=== PATIENT | female | born 1995 | race Caucasian/White ===

== ENCOUNTER → 2020-06-28 | Outpatient (REF) | payer OTHER ==
[~2020-06-28] MED LIST: ACET-683 PO; IBUP80TA PO
== END ==
LOC: M SFHCWAGY 12:40
PROVIDERS: ATTEND Advanced Practice Midwife
DX: Z36.89 Encounter for other specified antenatal screening (principal); Z3A.36 36 weeks gestation of pregnancy
CPT/HCPCS: 87081; G0463

== ENCOUNTER 2020-07-16 20:42 | Inpatient (IN) | payer OTHER ==
[2020-07-16] VITALS (7 sets, daily range): BP systolic 129–148; BP diastolic 72–95
[~2020-07-16] VITALS: Ht 170.2 cm; Wt 110.3 kg
[2020-07-16 21:38] LABS: HEMATOCRIT 34.5 % (36.0-47.0); HEMOGLOBIN 11.9 g/dl (12.0-15.5); MEAN CORPUSCULAR HEMOGLOBIN 30.9 pg (27.0-33.0); MEAN CORPUSCULAR HGB CONC 34.5 g/dl (32.0-36.5); MEAN CORPUSCULAR VOLUME 89.6 fl (80.0-96.0); PLATELET COUNT, AUTOMATED 261 10^3/uL (150-450); RED BLOOD COUNT 3.85 10^6/uL (4.00-5.40); WHITE BLOOD COUNT 8.6 10^3/uL (4.0-10.0)
[2020-07-16] MEDS ORDERED: LIDOCAINE 1% MDV 20ML VIAL INFIL PRN (21:50)
[2020-07-16] MEDS ORDERED: TRANEXAMIC ACID INJection 1,000 MG in NS 100 ML IV PRN (21:50)
[2020-07-16] MEDS ORDERED: CARBOPROST TROMETHAMINE 250 MCG/ML AMP IM PRN (21:50)
[2020-07-16] MEDS ORDERED: OXYTOCIN DRIP 30 UNITS in IV 1 EA IV SCH (21:50)
[2020-07-16] MEDS ORDERED: OXYTOCIN INJ 10 UNITS/ML VIAL (J2590) IM PRN (21:50)
[2020-07-16] MEDS ORDERED: OXYTOCIN DRIP 30 UNITS in IV 1 EA IV PRN ×6 (21:50)
[2020-07-16] MEDS ORDERED: LR 1,000 ML IV SCH (21:50)
[2020-07-16] MEDS ORDERED: OXYTOCIN INJ 10 UNITS/ML VIAL (J2590) IV PRN (21:50)
[2020-07-16] MEDS ORDERED: METHYLERGONOVINE MALEATE 0.2 MG/ML VIAL (J2210) IM PRN (21:50)
[2020-07-16] MEDS ORDERED: LACTATED RINGER'S 1000 ML IV STA (21:50)
--- NOTE | 2020-07-16 22:03 | HPEPDOC ---
Obstetrical History & Physical General Date of Admission July 16, 2020 at 20:42 History of Present Illness 25-year-old at 39+0 weeks gestation. Presents for an induction of labor. Indication for induction: Elective She denies vaginal bleeding, loss of fluid or painful, frequent uterine contractions. She reports regular movement. She denies headache, visual changes, right upper quadrant pain, shortness of breath or chest pain. course: Uncomplicated PMH: None SH:. Ankle/foot, no abdominal surgeries Meds: vitamin All: NKDA ENDOSCOPY NURSE: No STI or dysplasia OB: 2016, , 6 lbs. 10 oz. at 36 weeks/PPROM Sochx: No tobacco, alcohol or drug use FamHx: Breast cancer, hypertension, diabetes, asthma labs: Blood type A negative, antibody screen negative, HepBsAg neg, HIV neg, rubella immune, Hep C antibody negative, RPR nonreactive, CT/GC neg, urine culture negative, GDM screen negative, GBS negative Imaging: No placental abnormalities or anomalies Past Medical History Allergies Coded Allergies: azithromycin (Verified Allergy, Mild, RASH, 07/16/20) ceftriaxone (Verified Allergy, Mild, NAUSEA/VOMITING, 07/16/20) Sulfa (Sulfonamide Antibiotics) (Verified Allergy, Unknown, NAUSEA/VOMITING, 07/16/20) Physical Examination Physical Examination GENERAL: Alert and oriented times three. ABDOMEN: Gravid and non-tender to touch. FETUS: Is vertex (VTX) by sterile vaginal examination (SVE), fetus is vertex (VTX) by Akbar. HEART RATE: Regular rate and rhythm. LUNGS: Clear to auscultation (CTA). EXTREMITIES: No edema. No clonus. SVE: 3-4 cm, 75%, -2 station, cephalic, intact, no bloody show EFM: Category 1 [place]: Irregular rare contraction pattern Vital Signs/I&O Vital Signs Date Time Temp Pulse Resp B/P (MAP) Pulse Ox O2 Delivery O2 Flow Rate FiO2 07/16/20 21:08 97.6 103 148/95 (112) Laboratory Data 24H LABS Laboratory Tests 2 07/16/20 21:30: Nucleated Red Blood Cells % (auto) 0.0 CBC/BMP Laboratory Tests 07/16/20 21:30 Assessment/Plan Assessment 25-year-old G2, P0 101 at 39+0 weeks gestation. Reassuring maternal and status. Elective induction of labor Plan Admit and orient. Medical Case Worker and consent. Labs and intravenous (IV) per unit protocol. Counseled on Pitocin and induction of labor (IOL). Anticipate C-S as appropriate. PRINCE VIDAL DO July 16, 2020 22:03
[2020-07-17] VITALS (36 sets, daily range): BP systolic 113–180; BP diastolic 58–105
[2020-07-17 00:03] LABS: TOTAL PROTEIN,RANDOM URINE 13.4 MG/DL (0.0-12.0)
[2020-07-17] MEDS ORDERED: FENTANYL 2MCG/ML ROPIVACAINE 0.2% IN 0.9% NACL 100ML IVBAG As Ordered ONE (01:15)
[2020-07-17] MEDS ORDERED: EPIDURAL/PCA KEYS XX PRN (01:50)
[2020-07-17] MEDS ORDERED: ONDANSETRON 4MG/2ML VIAL IV PRN ×2 (01:50→05:50)
[2020-07-17] MEDS ORDERED: EPIDURAL COMMENT XX SCH (01:50)
[2020-07-17] MEDS ORDERED: FENTANYL/ROPIVACAINE/NACL BAG 100 ML EPIDURAL SCH (01:50)
[2020-07-17] MEDS ORDERED: NALOXONE INJ 0.4MG/1ML VIAL (J2310 PER 1MG) IV PRN (01:50)
[2020-07-17] MEDS ORDERED: ePHEDrine SULFATE 25 MG/5 ML(5MG/ML) SYRINGE IV PRN (01:50)
[2020-07-17] MEDS ORDERED: diphenhydrAMINE 50MG/ML VIAL (J1200) IV PRN (01:50)
[2020-07-17] MEDS ORDERED: LACTATED RINGER'S 1000 ML IV PRN (01:50)
[2020-07-17] MEDS ORDERED: REFRIGERATOR IV KEYS XX PRN (01:50)
--- NOTE | 2020-07-17 02:56 | IPNPDOC ---
Obstetrical Progress Note Date of Service July 17, 2020 Subjective Patient is comfortable with epidural. Pt has had bloody show but no LOF. Objective Vital Signs Date Time Temp Pulse Resp B/P (MAP) Pulse Ox O2 Delivery O2 Flow Rate FiO2 07/16/20 22:11 110 138/91 (107) 07/16/20 21:08 97.6 Assessment Heart Rate Tracing: Category I Tocometer Contractions: Yes Frequency: every 2-5 min. Sterile Vaginal Examination Dilation: 5 cm Effacement (%): 90% Station: -1 Cervical Consistency: Soft Cervical Position: Anterior (AROM, clear fluid) Postion/Presentation: Cephalic presentation Assessment and Plan Status: Reassuring Anticipate: Vaginal Delivery Additional Comments Reassuring maternal and status. Continue Pitocin. PRINCE VIDAL DO July 17, 2020 02:56
[2020-07-17] MEDS ORDERED: MEASLES,MUMPS,RUBELLA VACCINE INJ (MMR-II) (90707) SC SCH (05:50)
[2020-07-17] MEDS ORDERED: DOCUSATE SODIUM 100MG CAPSULE PO PRN (05:50)
[2020-07-17] MEDS ORDERED: IBUPROFEN 600MG TAB PO PRN (05:50)
[2020-07-17] MEDS ORDERED: OXYTOCIN DRIP 30 UNITS in IV 1 EA IV SCH ×2 (05:50→06:05)
[2020-07-17] MEDS ORDERED: DIBUCAINE 1% OINTMENT 30GM TOP PRN (05:50)
[2020-07-17] MEDS ORDERED: RHOGAM 300 MCG (1500 IU) INJ (J2790) IM SCH (05:50)
[2020-07-17] MEDS ORDERED: ACETAMINOPHEN TAB 650MG DOSE (2X325MG) PO PRN (05:50)
[2020-07-17] MEDS ORDERED: ACETAMINOPHEN 500 MG TAB PO PRN (05:50)
[2020-07-17] MEDS ORDERED: LR 1,000 ML IV SCH (05:50)
[2020-07-17] MEDS ORDERED: OXYTOCIN 30 UNITS IN 0.9% NaCl 500ML IV BAG (J2590) As Ordered ONE (05:53)
--- NOTE | 2020-07-17 05:54 | DNPDOC ---
[facility] Delivery Note Delivery Note DATE OF DELIVERY: 07/17/20 TIME OF DELIVERY: 05 Spontaneous vaginal delivery. ELECTRONIC MAINTENANCE SUPERVISOR: Dr. Pineda Javier DO FACOG ANESTHESIA: Epidural LACERATION: none ESTIMATED BLOOD LOSS: 400 mL. FINDINGS: 7 pound 4 ounce (3280g) Female infant, Score 8 and 9. DELIVERY SUMMARY: The active phase and second stage of labor progressed in normal fashion. She received Pitocin augmentation throughout her labor course. The head delivered in the CHACE position, and restituted LOT. No nuchal cord was noted. The anterior shoulder delivered with gentle downward guidance and the remainder of the body delivered with ease. The baby was placed on the patient's chest. Delayed cord clamping occurred for approximately 1 minute. The cord was then doubly clamped and cut. IV Pitocin was bolused to actively manage the thi rd stage of labor. The placenta delivered intact without any difficulty within 10 minutes of delivery. Uterine bleeding was noted to be heavy and uterotonics were administered: IV Pitocin, Hemabate 0.25mg IM x1, Cytotec 1000mcg VT. The uterine fundus was noted to be firm and 2 cm below the umbilicus. The cervix, vagina, vulva and perineum were inspected. Bleeding was improved. No lacerations. Excellent hemostasis was noted. Sponge, needle and instrument counts were correct per protocol. DO SINTIA Montelongo JONATHAN R. DO July 17, 2020 05:54
[2020-07-17] MEDS ORDERED: LOPERAMIDE 2 MG CAPLET PO ONE (06:10)
[2020-07-17] MEDS: PRENATAL VITAMINS CHEWABLE TABLET PO SCH (08:57)
[2020-07-17] MEDS: IBUPROFEN 800 MG TAB PO PRN ×2 (11:37→22:44)
[2020-07-18 06:00] VITALS: BP 118/75
[2020-07-18] MEDS: PRENATAL VITAMINS CHEWABLE TABLET PO SCH (08:01)
[2020-07-18] MEDS ORDERED: ACET-683 PO (10:10)
[2020-07-18] MEDS ORDERED: IBUP80TA PO (10:10)
== END 2020-07-18 11:15 | disposition home or self-care (01) | DRG 807 ==
LOC: M LDI 20:42 → M OBS 07-17 09:30
PROVIDERS: ADMIT Obstetrics & Gynecology; ATTEND Obstetrics & Gynecology
PROC: 3E033VJ Introduction of Other Hormone into Peripheral Vein, Percutaneous Approach (ICD-10-PCS; 2020-07-16)
PROC: 10E0XZZ Delivery of Products of Conception, External Approach (ICD-10-PCS; principal; 2020-07-17)
PROC: 10907ZC Drainage of Amniotic Fluid, Therapeutic from Products of Conception, Via Natural or Artificial Opening (ICD-10-PCS; 2020-07-17)
DX: O80 Encounter for full-term uncomplicated delivery (principal); Z37.0 Single live birth; Z3A.39 39 weeks gestation of pregnancy

== ENCOUNTER → 2020-11-07 | Outpatient (CLI) | payer OTHER ==
[2020-11-07 11:16] LABS: HCG, SERUM QUALITATIVE NEGATIVE (NEGATIVE)
== END ==
LOC: M PLALAB 08:55
PROVIDERS: ATTEND Advanced Practice Midwife
DX: N92.6 Irregular menstruation, unspecified (principal)

== ENCOUNTER → 2021-08-13 | Outpatient (REF) | payer OTHER ==
[2021-08-13 17:36] LABS: C REACTIVE PROTEIN QUANTITATIV 0.43 MG/DL (0.00-0.30); RHEUMATOID FACTOR QUANT < 10.0 IU/ML (<15.0)
== END ==
LOC: M LAB REF 16:42
PROVIDERS: ATTEND Nurse Practitioner Family
DX: Z83.2 Family history of diseases of the blood and blood-forming organs and certain disorders involving the immune mechanism (principal)

== ENCOUNTER → 2021-08-14 | Outpatient (CLI) | payer OTHER | LOC: M RAD 16:38 | PROVIDERS: ATTEND Nurse Practitioner Family | DX: M79.641 Pain in right hand (principal) ==

== ENCOUNTER → 2022-03-20 | Outpatient (CLI) | payer OTHER ==
[2022-03-20 10:15] LABS: BASO % 0.5 % (0.0-1.0); EOS # 0.2 10^3/uL (0.0-0.5); EOS % 2.6 % (0.0-3.0); HEMATOCRIT 39.4 % (36.0-47.0); HEMOGLOBIN 13.2 g/dl (12.0-15.5); LYMPH # 1.6 10^3/uL (1.5-5.0); LYMPH % 25.3 % (24.0-44.0); MEAN CORPUSCULAR HGB CONC 33.5 g/dl (32.0-36.5); MEAN CORPUSCULAR VOLUME 92.5 fl (80.0-96.0); MONO # 0.5 10^3/uL (0.0-0.8); MONO % 8.4 % (2.0-8.0); NEUTROPHILS # 3.9 10^3/uL (1.5-8.5); PLATELET COUNT, AUTOMATED 289 10^3/uL (150-450); RED BLOOD COUNT 4.26 10^6/uL (4.00-5.40); WHITE BLOOD COUNT 6.2 10^3/uL (4.0-10.0)
[2022-03-20 10:34] LABS: ALBUMIN 3.9 G/DL (3.2-5.2); ALKALINE PHOSPHATASE 91 U/L (46-116); ALT/SGPT 20 U/L (7.0-40); AST/SGOT 18 U/L (<34); BILIRUBIN,TOTAL 0.7 MG/DL (0.3-1.2); BLOOD UREA NITROGEN 10 MG/DL (9-23); CALCIUM LEVEL 9.2 MG/DL (8.5-10.1); CARBON DIOXIDE LEVEL 27 MMOL/L (20-31); CHLORIDE LEVEL 105 MMOL/L (98-107); CREATININE FOR GFR 0.62 MG/DL (0.55-1.30); GLOMERULAR FILTRATION RATE > 60.0 (>60); GLUCOSE, FASTING 83 MG/DL (60-100); POTASSIUM SERUM 4.4 MMOL/L (3.5-5.1); SODIUM LEVEL 139 MMOL/L (136-145)
[2022-03-20 10:51] LABS: ERYTHROCYTE SEDIMENTATION RATE 17 mm/hr (0-20)
== END ==
LOC: M WUC 08:39
PROVIDERS: ATTEND Internal Medicine Rheumatology
DX: M25.50 Pain in unspecified joint (principal)

== ENCOUNTER → 2022-06-06 | Outpatient (REF) | payer OTHER | LOC: M SFHCWAGY 17:59 | PROVIDERS: ATTEND Nurse Practitioner Family | DX: Z12.4 Encounter for screening for malignant neoplasm of cervix (principal) ==

== ENCOUNTER → 2022-07-16 | Outpatient (CLI) | payer OTHER | LOC: M PLALAB 15:45 | PROVIDERS: ATTEND Advanced Practice Midwife | DX: Z34.90 Encounter for supervision of normal pregnancy, unspecified, unspecified trimester (principal) ==

== ENCOUNTER → 2022-08-29 | Outpatient (CLI) | payer OTHER ==
[2022-08-29 14:08] LABS: HEMATOCRIT 38.8 % (36.0-47.0); MEAN CORPUSCULAR HEMOGLOBIN 31.6 pg (27.0-33.0); MEAN CORPUSCULAR HGB CONC 33.5 g/dl (32.0-36.5); MEAN CORPUSCULAR VOLUME 94.2 fl (80.0-96.0); PLATELET COUNT, AUTOMATED 286 10^3/uL (150-450); RED BLOOD COUNT 4.12 10^6/uL (4.00-5.40); WHITE BLOOD COUNT 7.3 10^3/uL (4.0-10.0)
[2022-08-29 14:42] LABS: HIV 1&2 SCREEN NEGATIVE (NEGATIVE)
[2022-08-29 14:50] LABS: HEPATITIS C VIRUS ABY INDEX 0.09 INDEX (<0.8)
[2022-08-29 15:50] LABS: GC DNA AMPLIFICATION NEGATIVE (NEGATIVE)
== END ==
LOC: M PLALAB 11:15
PROVIDERS: ATTEND Advanced Practice Midwife
DX: Z34.81 Encounter for supervision of other normal pregnancy, first trimester (principal)

== ENCOUNTER → 2022-10-29 | Outpatient (CLI) | payer OTHER | LOC: M WHC 12:37 | PROVIDERS: ATTEND Advanced Practice Midwife | DX: Z34.92 Encounter for supervision of normal pregnancy, unspecified, second trimester (principal) ==

== ENCOUNTER → 2022-12-25 | Outpatient (CLI) | payer OTHER ==
[2022-12-25 14:11] LABS: HEMATOCRIT 35.2 % (36.0-47.0); HEMOGLOBIN 11.8 g/dl (12.0-15.5); MEAN CORPUSCULAR HEMOGLOBIN 31.1 pg (27.0-33.0); MEAN CORPUSCULAR HGB CONC 33.5 g/dl (32.0-36.5); MEAN CORPUSCULAR VOLUME 92.6 fl (80.0-96.0); PLATELET COUNT, AUTOMATED 285 10^3/uL (150-450); WHITE BLOOD COUNT 9.6 10^3/uL (4.0-10.0)
[2022-12-25 15:19] LABS: CHLAMYDIA DNA AMPLIFICATION NEGATIVE (NEGATIVE); GC DNA AMPLIFICATION NEGATIVE (NEGATIVE)
== END ==
LOC: M PLALAB 08:50
PROVIDERS: ATTEND Obstetrics & Gynecology
DX: Z34.92 Encounter for supervision of normal pregnancy, unspecified, second trimester (principal)

== ENCOUNTER → 2022-12-30 | Outpatient (CLI) | payer OTHER | LOC: M WHC 10:18 | PROVIDERS: ATTEND Obstetrics & Gynecology | DX: Z36.2 Encounter for other antenatal screening follow-up (principal) ==

== ENCOUNTER → 2023-02-21 | Outpatient (REF) | payer OTHER | LOC: M PLALAB 09:22 | PROVIDERS: ATTEND Obstetrics & Gynecology | DX: Z34.83 Encounter for supervision of other normal pregnancy, third trimester (principal) | CPT/HCPCS: 76815; 87081; G0463 ==

== ENCOUNTER 2023-03-16 19:20 | Inpatient (IN) | payer OTHER ==
[~2023-03-16] VITALS: Ht 170.2 cm; Wt 111.6 kg
[2023-03-16] MEDS ORDERED: PRENTAB9 PO (19:30)
[2023-03-16] MEDS ORDERED: HOME MED LIST COMPLETE! XX SCH (19:30)
[2023-03-16 19:41] VITALS: BP 133/76
[2023-03-16] MEDS ORDERED: LIDOCAINE 1% MDV 20ML VIAL INFIL PRN (19:45)
[2023-03-16] MEDS ORDERED: OXYTOCIN DRIP 30 UNITS in IV 1 EA IV PRN (19:45)
[2023-03-16] MEDS ORDERED: miSOPROStol 50MCG 1/2 TABLET SL SCH (20:00)
[2023-03-16 20:20] LABS: HEMATOCRIT 32.1 % (36.0-47.0); HEMOGLOBIN 10.7 g/dl (12.0-15.5); MEAN CORPUSCULAR HEMOGLOBIN 28.3 pg (27.0-33.0); MEAN CORPUSCULAR HGB CONC 33.3 g/dl (32.0-36.5); MEAN CORPUSCULAR VOLUME 84.9 fl (80.0-96.0); PLATELET COUNT, AUTOMATED 240 10^3/uL (150-450); RED BLOOD COUNT 3.78 10^6/uL (4.00-5.40); WHITE BLOOD COUNT 7.2 10^3/uL (4.0-10.0)
[2023-03-16 20:39] VITALS: BP 128/75
[2023-03-16 21:47] VITALS: BP 129/71
[2023-03-16 22:48] VITALS: BP 149/93
[2023-03-16 23:28] VITALS: BP 137/79
[2023-03-17] VITALS (30 sets, daily range): BP systolic 103–146; BP diastolic 59–99; O2SAT 99–100
[2023-03-17] MEDS ORDERED: LR 500 ML IV PRN (00:45)
[2023-03-17] MEDS ORDERED: FENTANYL/ROPIVACAINE/NACL BAG 100 ML EPIDURAL SCH (00:45)
[2023-03-17] MEDS ORDERED: NALOXONE INJ 0.4MG/1ML VIAL IV PRN (00:45)
[2023-03-17] MEDS ORDERED: ONDANSETRON 4MG 2ML VIAL IV PRN (00:45)
[2023-03-17] MEDS ORDERED: EPIDURAL/PCA KEYS XX PRN (00:45)
[2023-03-17] MEDS ORDERED: ePHEDrine SULFATE 25 MG/5 ML(5MG/ML) SYRINGE IVP PRN (00:45)
[2023-03-17] MEDS ORDERED: diphenhydrAMINE 50MG/ML VIAL IV PRN (00:45)
[2023-03-17] MEDS ORDERED: OXYTOCIN DRIP 30 UNITS in IV 1 EA IV SCH (01:40)
[2023-03-17] MEDS ORDERED: RHOGAM 300MCG (1500IU) INJ IM SCH (06:15)
[2023-03-17] MEDS ORDERED: METHYLERGONOVINE MALEATE 0.2 MG TAB PO PRN (06:15)
[2023-03-17] MEDS ORDERED: IBUPROFEN 600MG TAB PO PRN (06:15)
[2023-03-17] MEDS ORDERED: DIBUCAINE 1% OINTMENT 30GM TOP PRN (06:15)
[2023-03-17] MEDS ORDERED: ACETAMINOPHEN TAB 650MG DOSE (2X325MG) PO PRN (06:15)
[2023-03-17] MEDS ORDERED: DOCUSATE SODIUM 100MG CAPSULE PO PRN (06:15)
[2023-03-17] MEDS: IBUPROFEN 800 MG TAB PO PRN ×2 (08:21→14:46)
[2023-03-17] MEDS: PRENATAL VITAMINS CHEWABLE TABLET PO SCH (11:12)
[2023-03-17] MEDS: ACETAMINOPHEN 500 MG TAB PO PRN ×2 (11:13→22:55)
[2023-03-18] MEDS: IBUPROFEN 800 MG TAB PO PRN (00:34)
[2023-03-18 06:00] VITALS: BP 115/70; O2SAT 99
[2023-03-18] MEDS: PRENATAL VITAMINS CHEWABLE TABLET PO SCH (08:01)
[2023-03-18] MEDS: ACETAMINOPHEN 500 MG TAB PO PRN (12:17)
[2023-03-18] MEDS ORDERED: IBUP80TA PO (14:50)
[2023-03-18] MEDS ORDERED: ACET-683 PO (14:50)
[2023-03-18] MEDS ORDERED: INFLUENZA QUADRIVALENT PF VACCINE 0.5ML SYRINGE IM.IMMUN ONE (15:00)
[2023-03-18 18:00] VITALS: BP 130/82; O2SAT 98
[2023-03-19] MEDS ORDERED: MEASLES,MUMPS,RUBELLA VACCINE INJ (MMR-II) SC.IMMUN ONE (09:00)
== END 2023-03-18 18:30 | disposition home or self-care (01) | DRG 807 ==
LOC: M LDI 19:20 → M OBS 03-17 08:55
PROVIDERS: ADMIT Specialist; ATTEND Specialist
PROC: 10E0XZZ Delivery of Products of Conception, External Approach (ICD-10-PCS; principal; 2023-03-17)
PROC: 3E0P7GC Introduction of Other Therapeutic Substance into Female Reproductive, Via Natural or Artificial Opening (ICD-10-PCS; 2023-03-17)
PROC: 10907ZC Drainage of Amniotic Fluid, Therapeutic from Products of Conception, Via Natural or Artificial Opening (ICD-10-PCS; 2023-03-17)
DX: O99.214 Obesity complicating childbirth (principal); Z37.0 Single live birth; E66.9 Obesity, unspecified; O99.344 Other mental disorders complicating childbirth; F41.9 Anxiety disorder, unspecified; Z3A.39 39 weeks gestation of pregnancy